=== PATIENT | male | born 1950 | race Caucasian/White ===

== ENCOUNTER 2017-01-22 13:48 | Observation (INO) ==
--- NOTE | 2017-01-22 14:24 | Emergency Department Note ---
Disposition Clinical Impression: Acute exacerbation of chronic obstructive airways disease Acute respiratory failure Qualifiers: Respiratory failure complication: hypoxia Qualified Code(s): J96.01 - Acute respiratory failure with hypoxia Disposition: Admitted As Inpatient Referrals: Damián Su DO [Primary Care Provider] - Forms: ED Satisfaction Letter SOB HPI - General Chief Complaint: ED Shortness of Breath/Dyspnea Stated Complaint: CAMRON/Cough/COPD Time Seen by Provider: 01/22/17 14:14 Source: patient, family Limitations: no limitations Nursing Notes Reviewed: Yes Vital Signs Reviewed: Yes - History of Present Illness Pt Subjective Complaint: shortness of breath, cough Onset (ago): week(s) (1) Severity: moderate Consistency/Duration: intermittent, gradually worsening Improves with: rest, bronchodilators Worsens with: exertion, coughing Known history of: COPD Associated symptoms: Reports: denies other symptoms Treatment prior to arrival: bronchodilator Cough present: Yes Cough Description: Involuntary Cough Frequency: Intermittent - Related Data Home Medications Medication Instructions Recorded Confirmed Mucinex Dm 12/13/15 Omeprazole 12/13/15 12/13/15 Previous Rx's Medication Instructions Recorded Amoxicillin 875 mg PO BID #20 tablet 12/13/15 Allergies Allergy/AdvReac Type Severity Reaction Status Date / Time No Known Allergies Allergy Verified 01/22/17 14:06 All systems ED: reviewed and negative except as stated. Past Medical History - Past Medical History Medical history: Reports: COPD Psychiatric history: Reports: no psych history - Social History Smoking Status: Former smoker Smokeless Tobacco Status: No Alcohol use: Reports: none Drug use: Reports: none Physical Exam - General Limitations: no limitations General appearance: alert, in no apparent distress - Head Head exam: atraumatic, normocephalic, normal inspection - Eye Eye exam: Present: normal appearance, PERRL, EOMI - Expanded Eye Exam Pupils: Left: reactive - ENT ENT exam: normal exam, normal oropharynx, mucous membranes moist - Expanded ENT Exam External ear exam: Present: normal external inspection Mouth exam: Present: normal external inspection Teeth exam: Present: normal inspection Throat exam: Present: normal inspection - Neck Neck exam: Present: normal inspection, full ROM, trachea midline - Chest Chest inspection: Present: normal inspection, symmetric chest wall rise - Respiratory Respiratory exam: Present: wheezes (scattered with rhonchi), prolonged expiratory phase - Cardiovascular Cardiovascular exam: Present: regular rate, normal rhythm, normal heart sounds - Abdominal Exam Abdominal exam: Present: soft, Non-Tender. Absent: tenderness, distention, guarding, rebound, rigidity - Extremities Exam Extremities exam: Present: normal inspection, full ROM. Absent: tenderness, pedal edema - Expanded Upper Extremity Exam Shoulder exam: Present: normal inspection, full ROM Arm exam: Present: normal inspection, full ROM Elbow exam: Present: normal inspection, full ROM Forearm/Wrist exam: Present: normal inspection, full ROM Hand exam: Present: normal inspection, full ROM Vascular exam: Normal: capillary refill, radial pulse - Expanded Lower Extremity Exam Hip/Pelvis exam: Present: normal inspection, full ROM Upper leg exam: Present: normal inspection, full ROM Knee exam: Present: normal inspection, full ROM Lower leg exam: Present: normal inspection, full ROM Ankle exam: Present: normal inspection, full ROM Foot/toe exam: Present: normal inspection, full ROM Neurovascular/Tendon exam: Absent: motor deficit, sensory deficit, tendon deficit - Back Exam Back exam: Present: normal inspection, full ROM. Absent: tenderness - Neurological Exam Neurological exam: Present: alert, oriented X3 - Expanded Neurological Exam Patient oriented to: Present: person, place, time Coma Scale Eye Opening: Spontaneous Coma Scale Motor Response: Obeys Commands Coma Scale Verbal Response: Oriented Coma Scale Total: 15 - Psychiatric Psychiatric exam: Present: normal affect, normal mood - Skin Skin exam: Present: warm, dry, intact, normal color Course - Reevaluation(s) Reevaluation #1: Patient ambulated without oxygen sats dropped to 80% on room air with mild exertion Time: 17:06 Vital Signs Temperature 98.3 F 01/22/17 14:07 Pulse Rate 79 01/22/17 14:07 Respiratory Rate 22 01/22/17 14:07 Blood Pressure 139/79 01/22/17 14:07 O2 Sat by Pulse Oximetry 91 01/22/17 14:07 Temperature 98.3 F 01/22/17 14:07 Pulse Rate 90 01/22/17 15:51 Respiratory Rate 18 01/22/17 15:51 Blood Pressure 150/83 01/22/17 15:51 O2 Sat by Pulse Oximetry 92 01/22/17 15:51 Oxygen Delivery Oxygen Delivery Nasal Cannula Shortness of Breath/Dyspnea - Differential Diagnosis Likely: acute exacerbation of chronic obstructive airways disease, congestive heart failure, pneumonia, asthma with exacerbation, pulmonary embolism, pneumothorax - Medical Records Medical records reviewed: Yes I reviewed the patient's medical records. - Lab Data Lab results reviewed: Yes I reviewed the patient's lab results. Result diagrams: 01/22/17 15:00 01/22/17 15:00 Lab Results 01/22/17 01/22/17 01/22/17 Range/Units 15:00 15:00 15:00 WBC 11.2 H (4.3-11.1) K/mcL RBC 4.80 (4.19-5.50) M/mcL Hgb 14.5 (12.9-16.9) g/dL Hct 41.5 (37.5-50.1) % MCV 86.5 (83.0-100.0) fL MCH 30.2 (28.0-33.3) pg MCHC 34.9 (31.6-35.5) g/dL RDW 12.5 (11.5-14.5) % Plt Count 205 (140-400) K/mcL MPV 9.7 (9.4-12.4) fL Immature Gran % 0.4 (0-4) % Seg Neutrophils % 81.3 % Lymphocytes % 9.6 % Monocytes % 8.1 % Eosinophils % 0.5 % Basophils % 0.1 % Neutrophils # 9.1 H (1.6-8.9) K/mcL Lymphocytes # 1.1 (0.6-4.6) K/mcL Monocytes # 0.9 (0.0-1.3) K/mcL Eosinophils # 0.1 (0.0-0.6) K/mcL Basophils # 0.0 (0.0-0.2) K/mcL Sodium 135 L (136-145) mEq/L Potassium 3.9 (3.5-4.5) mEq/L Chloride 102 (98-109) mEq/L Carbon Dioxide 22 (19-29) mEq/L BUN 10 (8-26) mg/dL Creatinine 0.97 (0.72-1.25) mg/dL Est GFR ( Amer) > 60 (> 60) Est GFR (Non-Af Amer) > 60 (> 60) BUN/Creatinine Ratio 10 (6-26) Glucose 106 H (70-99) mg/dL Calculated Osmolality 279 L (280-300) Calcium 9.2 (8.6-10.8) mg/dL Troponin I 0.01 (0-0.03) ng/mL B-Natriuretic Peptide (0-100) pg/mL 01/22/17 Range/Units 15:00 WBC (4.3-11.1) K/mcL RBC (4.19-5.50) M/mcL Hgb (12.9-16.9) g/dL Hct (37.5-50.1) % MCV (83.0-100.0) fL MCH (28.0-33.3) pg MCHC (31.6-35.5) g/dL RDW (11.5-14.5) % Plt Count (140-400) K/mcL MPV (9.4-12.4) fL Immature Gran % (0-4) % Seg Neutrophils % % Lymphocytes % % Monocytes % % Eosinophils % % Basophils % % Neutrophils # (1.6-8.9) K/mcL Lymphocytes # (0.6-4.6) K/mcL Monocytes # (0.0-1.3) K/mcL Eosinophils # (0.0-0.6) K/mcL Basophils # (0.0-0.2) K/mcL Sodium (136-145) mEq/L Potassium (3.5-4.5) mEq/L Chloride (98-109) mEq/L Carbon Dioxide (19-29) mEq/L BUN (8-26) mg/dL Creatinine (0.72-1.25) mg/dL Est GFR ( Amer) (> 60) Est GFR (Non-Af Amer) (> 60) BUN/Creatinine Ratio (6-26) Glucose (70-99) mg/dL Calculated Osmolality (280-300) Calcium (8.6-10.8) mg/dL Troponin I (0-0.03) ng/mL B-Natriuretic Peptide 20 (0-100) pg/mL - Radiology Data Radiology results reviewed: Yes I reviewed the patient's radiology results.
[2017-01-22 15:08] LABS: Basophils % 0.1 %; Eosinophils # 0.1 K/mcL (0.0-0.6); Eosinophils % 0.5 %; Hematocrit 41.5 % (37.5-50.1); Hemoglobin 14.5 g/dL (12.9-16.9); Immature Granulocytes % 0.4 % (0-4); Lymphocytes # 1.1 K/mcL (0.6-4.6); Lymphocytes % 9.6 %; Mean Corpuscular HGB Conc 34.9 g/dL (31.6-35.5); Mean Corpuscular Hemoglobin 30.2 pg (28.0-33.3); Mean Corpuscular Volume 86.5 fL (83.0-100.0); Mean Platelet Volume 9.7 fL (9.4-12.4); Monocytes # 0.9 K/mcL (0.0-1.3); Monocytes % 8.1 %; Neutrophils # 9.1 K/mcL (1.6-8.9); Platelet Count 205 K/mcL (140-400); Red Cell Distribution Width 12.5 % (11.5-14.5); Segmented Neutrophils % 81.3 %
[2017-01-22] MEDS ORDERED: methylPREDNISolone 125 MG/2 ML VIAL IV ONE (15:18)
[2017-01-22] MEDS ORDERED: Ipratropium/Albuterol Neb 3 ML IH ONE (15:18)
[2017-01-22 15:25] LABS: BUN/Creatinine Ratio 10 (6-26); Blood Urea Nitrogen 10 mg/dL (8-26); Calcium 9.2 mg/dL (8.6-10.8); Carbon Dioxide 22 mEq/L (19-29); Chloride 102 mEq/L (98-109); Glucose 106 mg/dL (70-99); Osmolality,Calculated 279 (280-300); Potassium 3.9 mEq/L (3.5-4.5); Sodium 135 mEq/L (136-145); eGFR For African Americans > 60 (> 60); eGFR For Non-African Americans > 60 (> 60)
[2017-01-22] MEDS ORDERED: Levofloxacin 750 MG/150 ML 750 MG/150 ML BAG IVPB ONE (17:07)
[2017-01-22] MEDS ORDERED: Acetaminophen 325 MG TABLET PO PRN (20:45)
[2017-01-22] MEDS ORDERED: *HR* HYDROcodone/Acet 5/325 mg TABLET PO PRN (20:45)
[2017-01-22] MEDS ORDERED: Albuterol 2.5 MG/3 ML NEBULIZER IH PRN (20:48)
--- NOTE | 2017-01-22 22:58 | Internal Med History&Physical ---
Date of Encounter: 01/22/17 Time of Encounter: 22:55 Assessment and Plan (1) Acute exacerbation of chronic obstructive airways disease Current visit: Yes Status: Acute The patient was reportedly wheezing in the emergency department now his exam reveals diminished breath sounds with prolonged expiratory phase consistent with COPD. Chest x-ray was negative. We will treat him for COPD exacerbation with IV Solu-Medrol IV Levaquin and inhaled albuterol and Atrovent. I will check a viral respiratory panel to determine if a viral infection could have triggered his current episode of bronchitis and COPD exacerbation. He has quit smoking 7 years ago. Prior to that he smoked for more than 40 years. (2) Acute respiratory failure Current visit: Yes Status: Acute Oxygen saturation with minimal ambulation was 80% in the emergency department. At rest he is comfortable in the mid 90s. We will continue with supplemental oxygen. Check ambulatory oxygen saturation at discharge. Qualifiers: Respiratory failure complication: hypoxia Qualified Code(s): J96.01 - Acute respiratory failure with hypoxia (3) DVT prophylaxis Current visit: Yes Status: Acute Encourage early ambulation. Internal Medicine - H&P: HPI Chief complaint: Shortness of breath Admitted From: Emergency Dept Plans for Post Hospital Care: Home History of present illness: Mr. Pizarro is a 66 year old male with past medical history significant for mild COPD who presented to the hospital for shortness of breath. He says that for the last 1 week he has had body aches and fevers on and off cough and shortness of breath and sputum production which initially started as white and became more green. Today he had severe shortness of breath worse with minimal exertion associated with productive cough with no aggravating or alleviating factors. Reportedly he was wheezing in the emergency department he was given breathing treatments with help relieve his symptoms however when ambulating his oxygen saturation dropped to 80%. A 10 point review of systems was negative except for the history of present illness Family history positive for the history of cancer in the patient's father. Past Med Surg Social Fam HX - Past Medical History Medical history: COPD Psychiatric history: no psych history - Past Surgical History Surgical History: other - Social History Smoking Status: Former smoker Smokeless Tobacco Status: No Alcohol use: none Drug use: none - Family History Mother Hx Family Cancer: Yes Internal Medicine - H&P: Meds Omeprazole [PriLOSEC] 20 mg PO DAILY 12/13/15 [History] Acetaminophen [Tylenol Arthritis] 650 mg PO Q6H PRN 01/22/17 [History] DiphenhydraMINE [Benadryl] 25 mg PO Q6HR PRN 01/22/17 [History] Allergies No Known Allergies Allergy (Verified 01/22/17 14:06) All Systems PM: A 10-system review of systems was performed and is negative for pertinent findings except as documented above in the HPI. - Constitutional Vitals: Temp Pulse Resp BP Pulse Ox 97.5 F L 89 18 169/91 93 01/22/17 20:23 01/22/17 20:23 01/22/17 20:23 01/22/17 20:23 01/22/17 20:23 General appearance: Present: A&O X 3 - Respiratory Respiratory exam: Present: decreased breath sounds, CTAB, prolonged expiratory phase. Absent: accessory muscle use, rales, rhonchi, wheezes - Cardiovascular Cardiovascular exam: Present: RRR, +S1, +S2. Absent: diastolic murmur, gallop, rubs, systolic murmur - GI/Abdominal GI/Abdominal exam: Present: normal bowel sounds, soft, no peritoneal signs. Absent: distended, tenderness - Extremities Exam Extremities exam: Present: warm, radial pulses palpable and symetrical. Absent : calf tenderness, cyanotic, pedal edema - Neurological Exam Neurological exam: Present: CN II-XII intact, oriented X3, no focal deficits. Absent: pronater drift, facial droop, speech deficit - Skin Skin exam: Present: dry, intact Internal Med - H&P Results - Labs CBC & Chem 7: 01/22/17 15:00 01/22/17 15:00
[2017-01-22] MEDS: methylPREDNISolone 125 MG/2 ML VIAL IVP SCH (23:38)
[2017-01-23] MEDS: Ipratropium/Albuterol Neb 3 ML IH SCH ×7 (00:12→23:11)
[2017-01-23 01:08] LABS: Adenovirus Not Detected (Not Detect); Coronavirus 229E Not Detected (Not Detect); Coronavirus HKU1 Not Detected (Not Detect); Coronavirus NL63 Not Detected (Not Detect); Coronavirus OC43 Not Detected (Not Detect); Human Metapneumovirus Not Detected (Not Detect); Human Rhinovirus/Enterovirus Not Detected (Not Detect); Influenza A Subtype 2009 H1 Not Detected (Not Detect); Influenza A Untypeable Not Detected (Not Detect); Influenza B Not Detected (Not Detect); Parainfluenza Virus 1 Not Detected (Not Detect); Parainfluenza Virus 2 Not Detected (Not Detect)
[2017-01-23 01:09] LABS: Bordetella Pertussis Not Detected (Not Detect); Chlamydophila pneumoniae Not Detected (Not Detect); Mycoplasma pneumoniae Not Detected (Not Detect); Parainfluenza Virus 3 Not Detected (Not Detect); Parainfluenza Virus 4 Not Detected (Not Detect); Respiratory Syncytial Virus Not Detected (Not Detect)
[2017-01-23 07:06] LABS: Basophils % 0.1 %; Hematocrit 41.8 % (37.5-50.1); Hemoglobin 14.6 g/dL (12.9-16.9); Immature Granulocytes % 0.5 % (0-4); Lymphocytes # 0.4 K/mcL (0.6-4.6); Mean Corpuscular HGB Conc 34.9 g/dL (31.6-35.5); Mean Corpuscular Hemoglobin 29.9 pg (28.0-33.3); Mean Corpuscular Volume 85.7 fL (83.0-100.0); Mean Platelet Volume 10.1 fL (9.4-12.4); Monocytes # 0.1 K/mcL (0.0-1.3); Monocytes % 1.5 %; Neutrophils # 8.2 K/mcL (1.6-8.9); Platelet Count 230 K/mcL (140-400); Red Blood Count 4.88 M/mcL (4.19-5.50); Red Cell Distribution Width 12.5 % (11.5-14.5); Segmented Neutrophils % 92.9 %
[2017-01-23 07:27] LABS: BUN/Creatinine Ratio 13 (6-26); Blood Urea Nitrogen 13 mg/dL (8-26); Calcium 9.5 mg/dL (8.6-10.8); Carbon Dioxide 18 mEq/L (19-29); Chloride 104 mEq/L (98-109); Glucose 184 mg/dL (70-99); Osmolality,Calculated 285 (280-300); Potassium 3.8 mEq/L (3.5-4.5); Sodium 135 mEq/L (136-145); eGFR For African Americans > 60 (> 60); eGFR For Non-African Americans > 60 (> 60)
[2017-01-23] MEDS ORDERED: Levofloxacin 750 MG/150 ML 750 MG/150 ML BAG IVPB SCH (09:00)
[2017-01-23] MEDS: methylPREDNISolone 125 MG/2 ML VIAL IVP SCH (09:22)
[2017-01-23] MEDS ORDERED: Mag Hydrox/Al Hydrox/Simeth 30 ML UDC PO PRN (17:11)
--- NOTE | 2017-01-23 17:17 | Electrocardiograph Report ---
[place] [id number] Test Date: 2017-01-22 Pat Name: Oracio Pizarro Department: 103 Room: 2A Gender: Draw Tender: AM : 1950 Requested By: Cristiano Rod Order Number: [id number] Reading MD: Yvrose Venegas Measurements Intervals [place] Rate: 75 P: 66 TX: 194 QRS: 17 QRSD: 104 T: 53 QT: 361 QTc: 390 Interpretive Statements SINUS RHYTHM Electronically Signed On 01-23-2017 17:15:47 EDT by Yvrose Venegas
[2017-01-23] MEDS: MethylPREDNISolone 40 MG/ML VIAL IVP SCH (17:36)
[2017-01-23] MEDS: *HR* Heparin 5,000 UNIT/ML VIAL SQ SCH (17:37)
[2017-01-24 03:52] LABS: Basophils % 0.1 %; Hematocrit 40.3 % (37.5-50.1); Hemoglobin 14.3 g/dL (12.9-16.9); Immature Granulocytes % 1.3 % (0-4); Lymphocytes # 0.8 K/mcL (0.6-4.6); Lymphocytes % 4.4 %; Mean Corpuscular HGB Conc 35.5 g/dL (31.6-35.5); Mean Corpuscular Hemoglobin 30.5 pg (28.0-33.3); Mean Corpuscular Volume 85.9 fL (83.0-100.0); Mean Platelet Volume 9.8 fL (9.4-12.4); Monocytes # 0.8 K/mcL (0.0-1.3); Monocytes % 4.4 %; Neutrophils # 15.4 K/mcL (1.6-8.9); Platelet Count 282 K/mcL (140-400); Red Blood Count 4.69 M/mcL (4.19-5.50); Red Cell Distribution Width 12.7 % (11.5-14.5); Segmented Neutrophils % 89.8 %
[2017-01-24] MEDS: Ipratropium/Albuterol Neb 3 ML IH SCH ×4 (04:02→15:58)
[2017-01-24 04:04] LABS: BUN/Creatinine Ratio 16 (6-26); Blood Urea Nitrogen 14 mg/dL (8-26); Calcium 9.7 mg/dL (8.6-10.8); Carbon Dioxide 20 mEq/L (19-29); Chloride 104 mEq/L (98-109); Glucose 142 mg/dL (70-99); Osmolality,Calculated 289 (280-300); Potassium 3.5 mEq/L (3.5-4.5); Sodium 138 mEq/L (136-145); eGFR For African Americans > 60 (> 60); eGFR For Non-African Americans > 60 (> 60)
[2017-01-24] MEDS: *HR* Heparin 5,000 UNIT/ML VIAL SQ SCH (06:12)
[2017-01-24] MEDS: MethylPREDNISolone 40 MG/ML VIAL IVP SCH (06:13)
[2017-01-24] MEDS ORDERED: Levofloxacin 500 MG/100 ML 500 MG/100 ML BAG IVPB SCH (09:00)
[2017-01-24 11:31] VITALS: BP 152/88
--- NOTE | 2017-01-24 14:19 | Internal Med Progress Note ---
Date of Encounter: 01/23/17 Time of Encounter: 13:00 - Assessment and plan (1) Acute exacerbation of chronic obstructive airways disease Status: Acute Assessment and plan: Improving clinically. Continue bronchodilators along with supplemental oxygen and empiric IV antibiotics. Chest x-ray is not suggestive of pneumonia. (2) Acute respiratory failure Status: Acute Assessment and plan: Patient is not noted to be on home oxygen and currently is noted to require at least 2 L/m supplemental oxygen via nasal cannula. Continue to wean down FiO2 as tolerated. Qualifiers: Respiratory failure complication: hypoxia Qualified Code(s): J96.01 - Acute respiratory failure with hypoxia - Subjective Interval history: Reports improvement in shortness of breath and cough. No chest pain, palpitations or orthopnea. Tolerates oral diet. - Constitutional Vitals: Temp Pulse Resp BP Pulse Ox 97.9 F 81 17 152/88 91 01/24/17 11:31 01/24/17 11:31 01/24/17 11:31 01/24/17 11:31 01/24/17 11:31 General appearance: Present: A&O X 3, answers questions appropriately - Respiratory Respiratory exam: Present: decreased breath sounds (Bilateral decreased air entry. No active wheezing or rhonchi.). Absent: accessory muscle use, rales, rhonchi, wheezes - Cardiovascular Cardiovascular exam: Present: RRR, +S1, +S2. Absent: diastolic murmur, gallop, rubs, systolic murmur - GI/Abdominal GI/Abdominal exam: Present: normal bowel sounds, soft, no peritoneal signs. Absent: distended, tenderness Internal Medicine: Result - Labs CBC & Chem 7: 01/24/17 03:32 01/24/17 03:32 Labs: Short CBC 01/24/17 Range/Units 03:32 WBC 17.1 H D (4.3-11.1) K/mcL Hgb 14.3 (12.9-16.9) g/dL Hct 40.3 (37.5-50.1) % Plt Count 282 (140-400) K/mcL Neutrophils # 15.4 H (1.6-8.9) K/mcL BMP 01/24/17 03:32 Sodium 138 Potassium 3.5 Chloride 104 Carbon Dioxide 20 BUN 14 Creatinine 0.85 Glucose 142 H Calcium 9.7 Consult Discharge Plan - Plan Instructions: Acute Respiratory Distress Syndrome (DC), Chronic Obstructive Pulmonary Disease (DC) Referrals: Damián Su DO [Primary Care Provider] - (please call for an appointment upon discharge, per Dr. Su office) Prescriptions: Albuterol Sulfate [Albuterol Inhaler] 2 puff IH Q4H PRN 30 Days PRN Reason: Shortness Of Breath/Wheezing Levofloxacin [Levaquin] 500 mg PO DAILY #2 tablet PredniSONE 40 mg PO DAILY #10 tablet
--- NOTE | 2017-01-24 14:21 | Discharge Summary ---
Date of Encounter: 01/24/17 Time of Encounter: 12:30 - Discharge Diagnosis (1) Acute exacerbation of chronic obstructive airways disease Priority: Primary Status: Acute (2) Acute respiratory failure Priority: Primary Status: Acute Qualifiers: Respiratory failure complication: hypoxia Qualified Code(s): J96.01 - Acute respiratory failure with hypoxia - Discharge Medications Prescriptions: Albuterol Sulfate [Albuterol Inhaler] 2 puff IH Q4H PRN 30 Days PRN Reason: Shortness Of Breath/Wheezing Levofloxacin [Levaquin] 500 mg PO DAILY #2 tablet PredniSONE 40 mg PO DAILY #10 tablet Home Medications: Omeprazole [PriLOSEC] 20 mg PO DAILY 12/13/15 [History] Acetaminophen [Tylenol Arthritis] 650 mg PO Q6H PRN 01/22/17 [History] DiphenhydraMINE [Benadryl] 25 mg PO Q6HR PRN 01/22/17 [History] Albuterol Sulfate [Albuterol Inhaler] 2 puff IH Q4H PRN 30 Days 01/24/17 [Rx] Levofloxacin [Levaquin] 500 mg PO DAILY #2 tablet 01/24/17 [Rx] PredniSONE 40 mg PO DAILY #10 tablet 01/24/17 [Rx] Allergies/Adverse Reactions: Allergies No Known Allergies Allergy (Verified 01/22/17 14:06) Date of admission: 01/22/17 17:49 Primary care physician: Damián Su DO Consults: 01/22/17 19:47 Consult to Toll Relief Operator [CONS] Routine Reason for SW Consult: From home with . Recently completed antibiotic regimen at home for COPD exacerbation and failed treatment. Patient's saturations declined in emergency room when ambulating, hence patient was admitted to obtain home oxygen referral per nurse report. 01/22/17 20:46 Consult to Occupational Therapy [CONS] Routine Comment: Evaluate, develop and implement POC Consult to Physical Therapy [CONS] Routine Comment: Evaluate, develop and implement POC Discharging clinician: Catrina Phoenix Anticipated date of discharge: 01/24/17 - Patient Status Disposition: Home, Self-Care Condition: Good Functional capacity at discharge: independent ambulation Overall status at discharge: patient is progressing back to baseline - Discharge Instructions Instructions: Acute Respiratory Distress Syndrome (DC), Chronic Obstructive Pulmonary Disease (DC) Follow Up With: Damián Su DO [Primary Care Provider] - (please call for an appointment upon discharge, per Dr. Su office) - Diet and Activity Activity: wear oxygen at all times Diet: low fat, low cholesterol, low salt diet Hospital course: Mr. Pizarro is a 66 year old male who was admitted with worsening cough and shortness of breath. He was noted to be in acute exacerbation of COPD and was started on IV steroids, empiric IV antibiotics, bronchodilators and supplemental oxygen. Chest x-ray showed no evidence of acute focal infiltrates. He improved significantly on this regimen, his oxygen requirements improved, however patient underwent home oxygen evaluation and is noted to require at least 2 L/m supplemental oxygen via nasal cannula continuously to maintain his oxygen saturation due to underlying COPD. He is noted to be ambulatory at home. This has been arranged and patient is otherwise medically stable for discharge with outpatient follow-up, oral steroids and antibiotics. - Time Spent with Patient Total time spent providing and/or coordinating discharge services: Greater than 30 minutes (45 min) - Constitutional Vitals: Temp Pulse Resp BP Pulse Ox 97.9 F 81 17 152/88 91 01/24/17 11:31 01/24/17 11:31 01/24/17 11:31 01/24/17 11:31 01/24/17 11:31 General appearance: Present: A&O X 3, answers questions appropriately - Respiratory Respiratory exam: Present: CTAB. Absent: accessory muscle use, rales, rhonchi, wheezes - Cardiovascular Cardiovascular exam: Present: RRR, +S1, +S2. Absent: diastolic murmur, gallop, rubs, systolic murmur
[2017-01-25] MEDS ORDERED: predniSONE 20 MG TABLET PO SCH (09:00)
== END 2017-01-24 16:21 | disposition home or self-care (01) ==
LOC: 2ANU 13:48 → EMEROO 13:48 → SUATTDRO 17:49 → 2ANU 19:02
PROVIDERS: ADMIT Internal Medicine; ATTEND Internal Medicine